=== PATIENT | female | born 1985 | race Hispanic/Latino ===

== ENCOUNTER 2017-08-13 22:40 | Emergency (ER) | payer MEDICAID ==
[2017-08-13 23:34] LABS: APPEARANCE,URINE Clear (CLEAR); BILIRUBIN,URINE Negative (NEGATIVE); COLOR,URINE Yellow (YELLOW); GLUCOSE, URINE (UA) Negative (NEGATIVE); KETONES,URINE Negative (NEGATIVE); LEUKOCYTE ESTERASE ,URINE Negative (NEGATIVE); NITRATE,URINE Negative (NEGATIVE); OCCULT BLOOD,URINE Negative (NEGATIVE); PROTEIN,URINE Negative (NEGATIVE); UROBILINOGEN,URINE 0.2 mg/dL (0.2-1.0)
[2017-08-13 23:35] LABS: HCG,QUAL RESULT NEGATIVE (NEGATIVE)
[2017-08-13 23:49] LABS: BASOPHILS % (AUTO) 0.7 % (0.0-5.0); EOSINOPHILS % (AUTO) 3.3 % (0.0-8.0); HEMATOCRIT 40.6 % (36-48); LYMPHOCYTES % (AUTO) 30.5 % (21.0-51.0); MEAN CORPUSCULAR HGB CONC 33.9 g/dL (32.0-36.0); MEAN CORPUSCULAR VOLUME 79.5 fL (79-99); MONOCYTES % (AUTO) 7.5 % (3.0-13.0); PLATELET COUNT (AUTO) 251 K/uL (130-400); RED BLOOD CELL COUNT(AUTO) 5.11 MIL/uL (4.00-5.50); RED CELL DISTRIBUTION WIDTH 13.8 % (11.0-15.5); WHITE BLOOD COUNT (AUTO) 11.5 K/uL (4.8-10.8)
[2017-08-13 23:56] LABS: CREATININE 0.7 mg/dL (0.5-1.5); POTASSIUM 3.6 mmol/L (3.5-5.1)
[2017-08-14 00:01] LABS: ALBUMIN 3.7 g/dL (3.5-5.0); BILIRUBIN,TOTAL 0.1 mg/dL (0.2-1.0); TOTAL PROTEIN, SERUM 7.9 g/dL (6.0-8.3)
[2017-08-14] MEDS ORDERED: KETOROLAC TROMETHAMINE 30MG/ML ONE (00:35)
== END 2017-08-14 01:48 | disposition home or self-care (01) ==
LOC: EDH 22:40
DX: R10.13 Epigastric pain (principal); R10.11 Right upper quadrant pain; R10.12 Left upper quadrant pain; Z88.0 Allergy status to penicillin; Z98.51 Tubal ligation status
CPT/HCPCS: 36415; 76705; 80053; 81003; 81025; 85025; 96374; 99285; J1885

== ENCOUNTER 2017-10-16 00:04 | Emergency (ER) | payer MEDICAID ==
[2017-10-16] MEDS ORDERED: DEXAMETHASONE SOD PHOSPHATE 10MG/ML 1ML VIAL ONE (00:42)
[2017-10-16] MEDS ORDERED: METHYLPREDNISOLONE SOD SUCC 125MG/2ML VIAL ONE (00:43)
[2017-10-16] MEDS ORDERED: ACETAMINOPHEN-CODEINE ELIXIR 5 ML UDCUP ONE (00:43)
[2017-10-16 01:43] LABS: APPEARANCE,URINE Cloudy (CLEAR); BILIRUBIN,URINE Small (NEGATIVE); COLOR,URINE Dark Yellow (YELLOW); GLUCOSE, URINE (UA) Negative (NEGATIVE); KETONES,URINE Trace mg/dL (NEGATIVE); LEUKOCYTE ESTERASE ,URINE Negative (NEGATIVE); NITRATE,URINE Negative (NEGATIVE); OCCULT BLOOD,URINE Negative (NEGATIVE); PROTEIN,URINE POS 1+ (NEGATIVE)
[2017-10-16 01:59] LABS: BACTERIA,URINE Few /HPF (None Seen); MUCUS,URINE Moderate LPF (None Seen); RBC,URINE 0-1 /HPF (0-1); SQUAMOUS EPITHELIAL CELL,UR Few /HPF (0-2)
== END 2017-10-16 01:46 | disposition home or self-care (01) ==
LOC: EDH 00:04
DX: M62.838 Other muscle spasm (principal); J30.9 Allergic rhinitis, unspecified; B34.9 Viral infection, unspecified; Z88.0 Allergy status to penicillin
CPT/HCPCS: 81001; 96372 ×2; 99284; J1100; J2930

== ENCOUNTER 2017-10-23 14:33 | Emergency (ER) | payer MEDICAID ==
[2017-10-23] MEDS ORDERED: ONDANSETRON ODT 4 MG TAB ONE (15:07)
[2017-10-23] MEDS ORDERED: MAG HYDROX/AL HYDROX/SIMETH ES 30 ML SUSP UDCUP ONE (15:07)
[2017-10-23 15:19] LABS: BASOPHILS % (AUTO) 0.7 % (0.0-5.0); EOSINOPHILS % (AUTO) 3.4 % (0.0-8.0); HEMATOCRIT 41.2 % (36-48); LYMPHOCYTES % (AUTO) 22.1 % (21.0-51.0); MEAN CORPUSCULAR HEMOGLOBIN 26.8 pg (27.0-33.0); MEAN CORPUSCULAR HGB CONC 33.2 g/dL (32.0-36.0); MEAN CORPUSCULAR VOLUME 80.6 fL (79-99); MONOCYTES % (AUTO) 10.1 % (3.0-13.0); NEUTROPHILS % (AUTO) 63.7 % (40.0-77.0); PLATELET COUNT (AUTO) 257 K/uL (130-400); RED BLOOD CELL COUNT(AUTO) 5.11 MIL/uL (4.00-5.50); RED CELL DISTRIBUTION WIDTH 14.6 % (11.0-15.5); WHITE BLOOD COUNT (AUTO) 11.2 K/uL (4.8-10.8)
[2017-10-23 15:27] LABS: CREATININE 0.7 mg/dL (0.5-1.5); POTASSIUM 4.1 mmol/L (3.5-5.1)
[2017-10-23 15:31] LABS: ALBUMIN 3.5 g/dL (3.5-5.0); BILIRUBIN,TOTAL 0.4 mg/dL (0.2-1.0); TOTAL PROTEIN, SERUM 7.4 g/dL (6.0-8.3)
[2017-10-23 15:36] LABS: APPEARANCE,URINE CLEAR (CLEAR); BILIRUBIN,URINE NEGATIVE (NEGATIVE); COLOR,URINE YELLOW (YELLOW); GLUCOSE, URINE (UA) NEGATIVE (NEGATIVE); KETONES,URINE NEGATIVE (NEGATIVE); LEUKOCYTE ESTERASE ,URINE NEGATIVE (NEGATIVE); NITRATE,URINE NEGATIVE (NEGATIVE); OCCULT BLOOD,URINE TRACE-INTACT (NEGATIVE); PH,URINE 5.5 (5.0-8.0); PROTEIN,URINE NEGATIVE (NEGATIVE); UROBILINOGEN,URINE 0.2 mg/dL (0.2-1.0)
[2017-10-23 15:41] LABS: HCG,QUAL RESULT NEGATIVE (NEGATIVE)
[2017-10-23 15:51] LABS: BACTERIA,URINE Few /HPF (None Seen); MUCUS,URINE Moderate LPF (None Seen); SQUAMOUS EPITHELIAL CELL,UR Rare /HPF (0-2); WBC,URINE 0-1 /HPF (0-1)
[2017-10-23 15:52] LABS: TRANSITIONAL EPI CELLS,URINE Rare /HPF (None Seen)
== END 2017-10-23 16:05 | disposition home or self-care (01) ==
LOC: EDH 14:33
DX: R10.9 Unspecified abdominal pain (principal); R11.10 Vomiting, unspecified; Z88.0 Allergy status to penicillin; Z79.899 Other long term (current) drug therapy; Z87.891 Personal history of nicotine dependence; Z87.442 Personal history of urinary calculi
CPT/HCPCS: 36415; 80053; 81001; 81025; 83690; 85025

== ENCOUNTER 2018-03-19 20:43 | Emergency (ER) | payer MEDICAID ==
[2018-03-19] MEDS ORDERED: ASPIRIN 325 MG TABLET ONE (21:16)
[2018-03-19 21:28] LABS: HCG,QUAL RESULT NEGATIVE (NEGATIVE)
[2018-03-19 21:31] LABS: BASOPHILS % (AUTO) 0.9 % (0.0-5.0); EOSINOPHILS % (AUTO) 4.1 % (0.0-8.0); LYMPHOCYTES % (AUTO) 35.7 % (21.0-51.0); MEAN CORPUSCULAR HEMOGLOBIN 26.5 pg (27.0-33.0); MEAN CORPUSCULAR HGB CONC 32.6 g/dL (32.0-36.0); MEAN CORPUSCULAR VOLUME 81.5 fL (79-99); MONOCYTES % (AUTO) 8.2 % (3.0-13.0); NEUTROPHILS % (AUTO) 51.1 % (40.0-77.0); NUCLEATED RED BLOOD CELLS 0.1 % (0.0-0.19); PLATELET COUNT (AUTO) 232 K/uL (130-400); RED BLOOD CELL COUNT(AUTO) 5.04 MIL/uL (4.00-5.50); RED CELL DISTRIBUTION WIDTH 13.4 % (11.0-15.5); WHITE BLOOD COUNT (AUTO) 10.4 K/uL (4.8-10.8)
[2018-03-19 21:32] LABS: AMPHET/METH SCREEN,URINE NEGATIVE (NEGATIVE); BARBITURATE SCREEN, URINE NEGATIVE (NEGATIVE); BENZODIAZEPINES SCREEN,URINE NEGATIVE (NEGATIVE); CANNABINOID SCREEN,URINE NEGATIVE (NEGATIVE); COCAINE SCREEN,URINE NEGATIVE (NEGATIVE); OPIATE SCREEN,URINE NEGATIVE (NEGATIVE); PHENCYCLIDINE SCREEN,URINE NEGATIVE (NEGATIVE)
[2018-03-19 21:43] LABS: CREATININE 0.9 mg/dL (0.5-1.5); POTASSIUM 3.9 mmol/L (3.5-5.1)
== END 2018-03-19 22:14 | disposition home or self-care (01) ==
LOC: EDH 20:43
DX: R07.89 Other chest pain (principal); Z88.0 Allergy status to penicillin; Z87.442 Personal history of urinary calculi
CPT/HCPCS: 36415; 71045; 80048; 80305; 81025; 84484; 85025; 93005

== ENCOUNTER 2018-07-06 23:42 | Emergency (ER) | payer MEDICAID ==
[2018-07-07 00:50] LABS: RAPID GROUP A STREP NEGATIVE (NEGATIVE)
[2018-07-07] MEDS ORDERED: ACETAMINOPHEN 325 MG TAB ONE (01:18)
== END 2018-07-07 01:23 | disposition home or self-care (01) ==
LOC: EDH 23:42
DX: J10.1 Influenza due to other identified influenza virus with other respiratory manifestations (principal); R50.81 Fever presenting with conditions classified elsewhere; Z88.0 Allergy status to penicillin; Z87.442 Personal history of urinary calculi; Z98.51 Tubal ligation status; Z87.891 Personal history of nicotine dependence
CPT/HCPCS: 87804; 87880

== ENCOUNTER 2019-03-10 10:44 | Emergency (ER) | payer MEDICAID, OTHER ==
[2019-03-10] MEDS ORDERED: KETOROLAC TROMETHAMINE 30MG/ML ONE (11:26)
[2019-03-10] MEDS ORDERED: ONDANSETRON HCL 4 MG/2 ML VIAL ONE (11:26)
[2019-03-10] MEDS ORDERED: SODIUM CHLORIDE 0.9% 1000ML 1,000 ML IV ONE (11:27)
[2019-03-10 11:30] LABS: BASOPHILS % (AUTO) 0.3 % (0.0-5.0); EOSINOPHILS % (AUTO) 0.2 % (0.0-8.0); HEMATOCRIT 41.3 % (36-48); LYMPHOCYTES % (AUTO) 13.8 % (21.0-51.0); MEAN CORPUSCULAR HEMOGLOBIN 27.2 pg (27.0-33.0); MEAN CORPUSCULAR HGB CONC 33.7 g/dL (32.0-36.0); MEAN CORPUSCULAR VOLUME 80.8 fL (79-99); MONOCYTES % (AUTO) 1.4 % (3.0-13.0); NEUTROPHILS % (AUTO) 84.3 % (40.0-77.0); PLATELET COUNT (AUTO) 251 K/uL (130-400); RED BLOOD CELL COUNT(AUTO) 5.12 MIL/uL (4.00-5.50); RED CELL DISTRIBUTION WIDTH 13.9 % (11.0-15.5); WHITE BLOOD COUNT (AUTO) 7.8 K/uL (4.8-10.8)
[2019-03-10 11:39] LABS: CREATININE 0.8 mg/dL (0.5-1.5)
[2019-03-10 11:44] LABS: ALBUMIN 3.9 g/dL (3.5-5.0); BILIRUBIN,TOTAL 0.3 mg/dL (0.2-1.0); TOTAL PROTEIN, SERUM 8.3 g/dL (6.0-8.3)
[2019-03-10 12:03] LABS: APPEARANCE,URINE Clear (CLEAR); BILIRUBIN,URINE Negative (NEGATIVE); COLOR,URINE Yellow (YELLOW); GLUCOSE, URINE (UA) Negative (NEGATIVE); KETONES,URINE Negative (NEGATIVE); LEUKOCYTE ESTERASE ,URINE Negative (NEGATIVE); NITRATE,URINE Negative (NEGATIVE); OCCULT BLOOD,URINE Negative (NEGATIVE); PROTEIN,URINE Negative (NEGATIVE); UROBILINOGEN,URINE 0.2 mg/dL (0.2-1.0)
[2019-03-10 12:07] LABS: HCG,QUAL RESULT NEGATIVE (NEGATIVE)
== END 2019-03-10 14:25 | disposition home or self-care (01) ==
LOC: EDH 10:44
DX: G50.1 Atypical facial pain (principal); R11.10 Vomiting, unspecified; R20.2 Paresthesia of skin; Z87.442 Personal history of urinary calculi; Z88.0 Allergy status to penicillin; Z98.51 Tubal ligation status
CPT/HCPCS: 36415; 70450; 80053; 81003; 81025; 85025; 96361; 96374; 96375; 99285; J1885; J2405; J7030

== ENCOUNTER 2019-04-23 08:43 | Observation (INO) | payer MEDICAID, OTHER ==
[~2019-04-23] VITALS: Ht 157.5 cm; Wt 55.2 kg
[2019-04-23] VITALS (25 sets, daily range): BP systolic 85–137; BP diastolic 56–86
[2019-04-23] MEDS ORDERED: KETOROLAC TROMETHAMINE 30MG/ML ONE ×2 (09:07→14:43)
[2019-04-23] MEDS ORDERED: ONDANSETRON HCL 4 MG/2 ML VIAL ONE ×2 (09:07→14:43)
[2019-04-23 09:17] LABS: BASOPHILS % (AUTO) 0.7 % (0.0-5.0); EOSINOPHILS % (AUTO) 2.8 % (0.0-8.0); HEMATOCRIT 39.4 % (36-48); LYMPHOCYTES % (AUTO) 25.6 % (21.0-51.0); MEAN CORPUSCULAR HEMOGLOBIN 27.3 pg (27.0-33.0); MEAN CORPUSCULAR HGB CONC 33.2 g/dL (32.0-36.0); MEAN CORPUSCULAR VOLUME 82.2 fL (79-99); MONOCYTES % (AUTO) 9.9 % (3.0-13.0); PLATELET COUNT (AUTO) 203 K/uL (130-400); RED BLOOD CELL COUNT(AUTO) 4.79 MIL/uL (4.00-5.50); WHITE BLOOD COUNT (AUTO) 8.1 K/uL (4.8-10.8)
[2019-04-23 09:25] LABS: CREATININE 0.6 mg/dL (0.5-1.5); POTASSIUM 4.5 mmol/L (3.5-5.1)
[2019-04-23 09:29] LABS: BILIRUBIN,DIRECT 0.1 mg/dL (0.0-0.3); BILIRUBIN,TOTAL 0.2 mg/dL (0.2-1.0); TOTAL PROTEIN, SERUM 6.7 g/dL (6.0-8.3)
[2019-04-23 10:56] LABS: APPEARANCE,URINE Cloudy (CLEAR); BILIRUBIN,URINE Negative (NEGATIVE); COLOR,URINE Yellow (YELLOW); GLUCOSE, URINE (UA) Negative (NEGATIVE); HCG,QUAL RESULT NEGATIVE (NEGATIVE); KETONES,URINE Negative (NEGATIVE); LEUKOCYTE ESTERASE ,URINE Negative (NEGATIVE); NITRATE,URINE Negative (NEGATIVE); OCCULT BLOOD,URINE Negative (NEGATIVE); PH,URINE 5.5 (5.0-8.0); PROTEIN,URINE Negative (NEGATIVE)
[2019-04-23 11:03] LABS: AMPHET/METH SCREEN,URINE NEGATIVE (NEGATIVE); BARBITURATE SCREEN, URINE NEGATIVE (NEGATIVE); BENZODIAZEPINES SCREEN,URINE NEGATIVE (NEGATIVE); CANNABINOID SCREEN,URINE NEGATIVE (NEGATIVE); COCAINE SCREEN,URINE NEGATIVE (NEGATIVE); OPIATE SCREEN,URINE NEGATIVE (NEGATIVE); PHENCYCLIDINE SCREEN,URINE NEGATIVE (NEGATIVE)
[2019-04-23 11:04] LABS: BACTERIA,URINE Rare /HPF (None Seen); MUCUS,URINE Rare LPF (None Seen); RBC,URINE 0-1 /HPF (0-1); SQUAMOUS EPITHELIAL CELL,UR Rare /HPF (0-2); WBC,URINE 0-1 /HPF (0-1)
[2019-04-23] MEDS ORDERED: CEFTRIAXONE SODIUM 1 GM ONE (12:07)
[2019-04-23] MEDS ORDERED: SODIUM CHLORIDE 0.9% 50 ML IV ONE (12:08)
[2019-04-23] MEDS ORDERED: LACTATED RINGERS 1000ML 1,000 ML IV ONE (14:10)
[2019-04-23] MEDS ORDERED: LIDOCAINE PF 2% 5ML ABBOJECT ONE (14:43)
[2019-04-23] MEDS ORDERED: GLYCOPYRROLATE 1 MG/5 ML SYRINGE ONE (14:43)
[2019-04-23] MEDS ORDERED: PROPOFOL 10 MG/ML 20ML VIAL IV ONE (14:43)
[2019-04-23] MEDS ORDERED: ROCURONIUM 10MG/1ML SYR 10 MG/ML ML ONE (14:43)
[2019-04-23] MEDS ORDERED: NEOSTIGMINE 5MG/5ML SYR IV ONE (14:43)
[2019-04-23] MEDS ORDERED: FENTANYL CITRATE PF 50 MCG/1 ML 2ML VIAL ONE (14:44)
[2019-04-23] MEDS ORDERED: BUPIVACAINE/PF 0.5% 30ML VIAL ONE (15:11)
[2019-04-23] MEDS ORDERED: MEPERIDINE-PF 25 MG/ML SYG ONE ×2 (15:53→16:29)
[2019-04-23] MEDS ORDERED: MORPHINE SULFATE 4 MG/1ML SYG IV PRN (16:00)
[2019-04-23] MEDS ORDERED: ONDANSETRON HCL 4 MG/2 ML VIAL IVP PRN (16:00)
--- NOTE | 2019-04-23 17:20 | NUR ---
S/P LAP DERREK AAOX3, X3 INCISION INTACT, NONE BLEEDING WELL APPROXIMATED.
--- NOTE | 2019-04-23 17:30 | NUR ---
INITIAL MET W PATIENT, POST OP, BF AT BEDSIDE, AAOX3, INDP, NO DME/HH/PRO; LIVES W MOM AND HER TWO DAUGHTERS- ONE CHILD HAS EPILESPY; THE OTHER IS DISABLED AND STILL REQUIRES CARE TO BAHTE, DRESS, HOLD WHILE WALKING,ETC DISCUSSED STRATEGIES TO HELP DURING RECOVERY. CURRENTLY MOM LOOKING AFTER CHILDREN. PMD MEME, LOST HER MEDIAIC, IS BEING RE INSTATED. DCP IS HOME, NO DC NEEDS ANTICIPATED. Addendum: 04/25/19 at 1830 by ANGELICA RICHMOND RN CM Amended: Links added.
[2019-04-23] MEDS: SODIUM CHLORIDE 0.9% 1000ML 1,000 ML IV SCH (20:52)
[2019-04-23] MEDS: ACETAMINOPHEN-CODEINE 300/30MG TAB PO PRN (20:52)
[2019-04-23] MEDS: ZOSYN 3.375GM+NS 50ML 50 ML IV SCH (20:52)
--- NOTE | 2019-04-24 | NUR ---
TRANSFER OF CARE Report received from Tj Norman RN to assume care of pt. Pt asleep on rounds with ongoing ivf of NS at 75 cc/hr, with Zosyn for iv antibiotic regimen. Head of the bed up, respiration non labored, no signs of discomfort, was just medicated for pain with tylenol #3 at 2051. Blood pressure noted down to 99/56 mmhg from 116/61 mmhg at mn and heart rate down to 56 from 66 at mn, will continue to monitor closely.
[2019-04-24 04:00] VITALS: BP 104/62
[2019-04-24 04:24] LABS: BASOPHILS % (AUTO) 0.5 % (0.0-5.0); EOSINOPHILS % (AUTO) 2.6 % (0.0-8.0); HEMATOCRIT 34.2 % (36-48); LYMPHOCYTES % (AUTO) 28.1 % (21.0-51.0); MEAN CORPUSCULAR HEMOGLOBIN 27.3 pg (27.0-33.0); MEAN CORPUSCULAR HGB CONC 33.2 g/dL (32.0-36.0); MEAN CORPUSCULAR VOLUME 82.1 fL (79-99); MONOCYTES % (AUTO) 8.3 % (3.0-13.0); NEUTROPHILS % (AUTO) 60.5 % (40.0-77.0); PLATELET COUNT (AUTO) 204 K/uL (130-400); RED BLOOD CELL COUNT(AUTO) 4.17 MIL/uL (4.00-5.50); RED CELL DISTRIBUTION WIDTH 14.2 % (11.0-15.5); WHITE BLOOD COUNT (AUTO) 7.9 K/uL (4.8-10.8)
[2019-04-24 04:41] LABS: CREATININE 0.6 mg/dL (0.5-1.5); POTASSIUM 3.5 mmol/L (3.5-5.1)
[2019-04-24] MEDS: ZOSYN 3.375GM+NS 50ML 50 ML IV SCH ×2 (05:05→13:00)
[2019-04-24] MEDS: SODIUM CHLORIDE 0.9% 1000ML 1,000 ML IV SCH (05:06)
--- NOTE | 2019-04-24 07:30 | NUR ---
NOTE AAOX3. C/O ABDOMINAL PAIN AND DISCOMFORT AT THIS TIME. SHE IS S/P LAPAROSCOPIC APPENDECTOMY YESTERDAY. 3 JAKE BANDAIDS PRESENT. ALL D/I. BOWEL SOUNDS PRESENT. SHE HAS NOT BEEN GETTING OUT OF BED OFTEN. ENCOURAGED HER TO AMBULATE. SHE CAN POSSIBLY GO HOME TODAY.
--- NOTE | 2019-04-24 07:41 | NUR ---
PATIENT UPDATE SLEPT FAIRLY OVERNIGHT, LAPAROSCOPIC PUNCTURE SITES X 3 WITH DRESSING DRY AND INTACT. MEDICATED ONCE WITH MORPHINE 4 MG SLOW IV PUSH FOR A PAIN SCORE OF 10 AT 0308 WHICH AFFORDED RELIEF. PT ENCOURAGED TO AMBULATE THIS AM SOON SHE WOKE UP. STATED THAT SHE'S BEEN GOING UP TO THE RESTROOM ANYWAY. EXPLAINED THE NEED FOR HER TO WALK MORE FOR HER TO BE RELIEVED FROM THE GAS PAINS, WILL TRY TO WALK AFTER SHE EATS HER FULL LIQUID BREAKFAST.
[2019-04-24 07:58] VITALS: BP 108/68
[2019-04-24] MEDS: ACETAMINOPHEN-CODEINE 300/30MG TAB PO PRN ×2 (09:21→15:35)
--- NOTE | 2019-04-24 10:30 | NUR ---
NOTE SPOKE TO HER REGARDING HER WALKING. SHE WENT TO [facility] FOR A WALK AND WAS USING WALKER. SHE DID NOT USE WALKER BEFORE AND SHE WANTED ONE BECAUSE SHE WAS VERY WEAK. I ENCOURAGED HER NOT TO HANDICAP HERSELF AND DO SHE USED TO BEFORE SURGERY ONLY BEING CAREFUL NOT TO LIFT ANYTHING HEAVY OR STRAIN HER ABDOMEN.
[2019-04-24 11:28] VITALS: BP 115/65
--- NOTE | 2019-04-24 15:00 | NUR ---
NOTE SHE HAS BEEN WALKING. WAS MEDICATED EARLIER WITH TYLENOL 3. LUISA TERRY ROUNDED AND SHE WILL GO HOME TODAY AFTER DINNER ORDERED PER HIM. DIET HAS BEEN ADVANCED AND SHE TOLERATED REGULAR LUNCH.
[2019-04-24 16:07] VITALS: BP 126/74
--- NOTE | 2019-04-24 18:15 | NUR ---
NOTE DISCHARGE INSTRUCTIONS GIVEN AT THIS TIME. VERBALIZED UNDERSTANDING. REFER TO DC SUMMARY FOR DETAILS. STABLE UPON LEAVING. HAD TOLERATED THE DIET WELL WITH SOME ABDOMINAL DISCOMFORT BUT HAD INCREASED HER ACTIVITY LEVEL.
== END 2019-04-24 18:30 | disposition home or self-care (01) ==
LOC: EDH 08:43 → EDHIP 08:44 → 4BH 16:59
PROVIDERS: ADMIT Student in an Organized Health Care Education/Training Program; ATTEND Student in an Organized Health Care Education/Training Program
DX: K35.80 Unspecified acute appendicitis (principal); R11.2 Nausea with vomiting, unspecified; I10 Essential (primary) hypertension; E78.5 Hyperlipidemia, unspecified; E66.9 Obesity, unspecified; Z87.891 Personal history of nicotine dependence; Z98.51 Tubal ligation status; Z79.899 Other long term (current) drug therapy; Z88.0 Allergy status to penicillin; Z68.22 Body mass index [BMI] 22.0-22.9, adult
CPT/HCPCS: 36415; 74176; 80048; 80076; 80305; 81001; 81025; 83690; 85025; 88304; 96361; 96365; 96366; 96375; G0378; J0696; J1885; J2001; J2175; J2270; J2405; J2543; J2704; J2710; J3010; J3490; J7030; J7120

== ENCOUNTER 2019-04-29 09:41 | Emergency (ER) | payer MEDICAID, OTHER ==
[2019-04-29] MEDS ORDERED: MORPHINE SULFATE 2 MG/ML 1ML SYG ONE (10:14)
[2019-04-29] MEDS ORDERED: ONDANSETRON HCL 4 MG/2 ML VIAL ONE (10:14)
[2019-04-29] MEDS ORDERED: SODIUM CHLORIDE 0.9% 1000ML 1,000 ML IV ONE (10:15)
[2019-04-29 10:34] LABS: BASOPHILS % (AUTO) 0.5 % (0.0-5.0); EOSINOPHILS % (AUTO) 3.8 % (0.0-8.0); HEMATOCRIT 42.5 % (36-48); LYMPHOCYTES % (AUTO) 27.2 % (21.0-51.0); MEAN CORPUSCULAR HEMOGLOBIN 25.9 pg (27.0-33.0); MEAN CORPUSCULAR HGB CONC 31.5 g/dL (32.0-36.0); MEAN CORPUSCULAR VOLUME 82.2 fL (79-99); MONOCYTES % (AUTO) 8.2 % (3.0-13.0); NEUTROPHILS % (AUTO) 59.6 % (40.0-77.0); PLATELET COUNT (AUTO) 249 K/uL (130-400); RED BLOOD CELL COUNT(AUTO) 5.17 MIL/uL (4.00-5.50); RED CELL DISTRIBUTION WIDTH 13.9 % (11.0-15.5); WHITE BLOOD COUNT (AUTO) 8.4 K/uL (4.8-10.8)
[2019-04-29 10:36] LABS: CREATININE 0.7 mg/dL (0.5-1.5); POTASSIUM 4.3 mmol/L (3.5-5.1)
[2019-04-29 11:03] LABS: APPEARANCE,URINE Clear (CLEAR); BILIRUBIN,URINE Negative (NEGATIVE); COLOR,URINE Yellow (YELLOW); GLUCOSE, URINE (UA) Negative (NEGATIVE); KETONES,URINE Negative (NEGATIVE); LEUKOCYTE ESTERASE ,URINE Small (NEGATIVE); NITRATE,URINE Negative (NEGATIVE); OCCULT BLOOD,URINE Negative (NEGATIVE); PH,URINE 5.5 (5.0-8.0); PROTEIN,URINE Negative (NEGATIVE); UROBILINOGEN,URINE 0.2 mg/dL (0.2-1.0)
[2019-04-29 11:05] LABS: HCG,QUAL RESULT NEGATIVE (NEGATIVE)
[2019-04-29 11:39] LABS: BACTERIA,URINE Few /HPF (None Seen); RBC,URINE None Seen /HPF (0-1)
== END 2019-04-29 12:49 | disposition home or self-care (01) ==
LOC: EDH 09:41
DX: K59.00 Constipation, unspecified (principal); M79.604 Pain in right leg; Z88.0 Allergy status to penicillin; Z87.891 Personal history of nicotine dependence; Z90.49 Acquired absence of other specified parts of digestive tract; Z98.890 Other specified postprocedural states
CPT/HCPCS: 36415; 74176; 80048; 81001; 81025; 85025; 93971; 96374; 96375; 99285; J2405; J7030

== ENCOUNTER 2019-05-30 01:44 | Emergency (ER) | payer MEDICAID ==
[2019-05-30 02:13] LABS: BASOPHILS % (AUTO) 0.4 % (0.0-5.0); EOSINOPHILS % (AUTO) 2.8 % (0.0-8.0); HEMATOCRIT 39.6 % (36-48); LYMPHOCYTES % (AUTO) 30.7 % (21.0-51.0); MEAN CORPUSCULAR HEMOGLOBIN 26.2 pg (27.0-33.0); MEAN CORPUSCULAR HGB CONC 32.1 g/dL (32.0-36.0); MEAN CORPUSCULAR VOLUME 81.8 fL (79-99); MONOCYTES % (AUTO) 9.6 % (3.0-13.0); NEUTROPHILS % (AUTO) 55.7 % (40.0-77.0); PLATELET COUNT (AUTO) 236 K/uL (130-400); RED BLOOD CELL COUNT(AUTO) 4.84 MIL/uL (4.00-5.50); RED CELL DISTRIBUTION WIDTH 13.7 % (11.0-15.5); WHITE BLOOD COUNT (AUTO) 10.9 K/uL (4.8-10.8)
[2019-05-30 02:17] LABS: CREATININE 0.6 mg/dL (0.5-1.5)
[2019-05-30 02:38] LABS: B-TYPE NATRIURETIC PEPTIDE < 5 pg/mL (0-100)
[2019-05-30] MEDS ORDERED: ORPHENADRINE CITRATE 30 MG/ML ML ONE (02:57)
[2019-05-30] MEDS ORDERED: LIDOCAINE 5% TOPICAL PATCH TP ONE (02:57)
[2019-05-30] MEDS ORDERED: KETOROLAC TROMETHAMINE 30MG/ML ONE (02:58)
== END 2019-05-30 05:22 | disposition home or self-care (01) ==
LOC: EDH 01:44
DX: R07.89 Other chest pain (principal); M54.89 Other dorsalgia; M62.838 Other muscle spasm; Z88.0 Allergy status to penicillin; Z90.49 Acquired absence of other specified parts of digestive tract; Z98.890 Other specified postprocedural states
CPT/HCPCS: 36415; 71045; 80048; 82550; 83880; 84484; 85025; 93005; 96374; 96375; 99285; J1885; J2360

== ENCOUNTER → 2021-08-01 | Outpatient (CLI) | payer MEDICAID | END | disposition home or self-care (01) | LOC: RAH 13:15 | PROVIDERS: ATTEND Family Medicine | DX: N64.4 Mastodynia (principal) | CPT/HCPCS: 77066 ==

== ENCOUNTER → 2022-08-04 | Outpatient (CLI) | payer MEDICAID | END | disposition home or self-care (01) | LOC: RAH 11:05 | PROVIDERS: ATTEND Psychiatry & Neurology Psychiatry | DX: Z12.31 Encounter for screening mammogram for malignant neoplasm of breast (principal) | CPT/HCPCS: 77067 ==

== ENCOUNTER 2023-07-23 20:34 | Emergency (ER) | payer MEDICAID ==
[~2023-07-23] VITALS: Ht 157.5 cm; Wt 135.2 kg
[2023-07-23] MEDS ORDERED: DIPH50 PO (21:05)
[2023-07-23] MEDS ORDERED: METH4TAB3 PO (21:05)
[2023-07-23 23:08] VITALS: BP 121/64; PULSE 68; RESP 20; O2SAT 98
[2023-07-23] MEDS: FAMOTIDINE 20MG TAB PO ONE (23:46)
[2023-07-23] MEDS: DEXAMETHASONE SOD PHOSPHATE 4 MG/ML 1ML VIAL IM ONE (23:46)
[2023-07-23] MEDS: DiphenhydrAMINE HCL 50 MG/ML VIAL IM ONE (23:46)
== END 2023-07-23 23:53 | disposition home or self-care (01) ==
LOC: EDH 20:34
DX: T78.40XA Allergy, unspecified, initial encounter (principal); L30.9 Dermatitis, unspecified; Z90.49 Acquired absence of other specified parts of digestive tract; Z88.0 Allergy status to penicillin
CPT/HCPCS: 99284; 96372 ×2; J1100; J1200

== ENCOUNTER 2023-10-22 12:24 | Emergency (ER) | payer MEDICAID ==
[~2023-10-22] VITALS: Ht 157.5 cm; Wt 124.5 kg
[~2023-10-22 12:24] MED LIST: DIPH50 PO; METH4TAB3 PO
[2023-10-22 13:42] LABS: BASOPHILS # (AUTO) 0.05 K/uL (0.00-0.20); BASOPHILS % (AUTO) 0.5 % (0.0-5.0); EOSINOPHILS # (AUTO) 0.33 K/uL (0.00-0.70); EOSINOPHILS % (AUTO) 3.5 % (0.0-8.0); HEMATOCRIT 39.5 % (36-48); IMMATURE GRANULOCYTE ABSOLUTE 0.02 K/uL (0-1); LYMPHOCYTES # (AUTO) 2.7 K/uL (1.0-4.8); LYMPHOCYTES % (AUTO) 28.5 % (21.0-51.0); MEAN CORPUSCULAR HGB CONC 32.2 g/dL (32.0-36.0); MEAN CORPUSCULAR VOLUME 77.6 fL (79-99); MONOCYTES # (AUTO) 0.6 K/uL (0.1-1.0); MONOCYTES % (AUTO) 6.3 % (3.0-13.0); NEUTROPHILS # (AUTO) 5.8 K/uL (1.8-7.7); PLATELET COUNT (AUTO) 258 K/uL (130-400); RED BLOOD CELL COUNT(AUTO) 5.09 MIL/uL (4.00-5.50); RED CELL DISTRIBUTION WIDTH 15.5 % (11.0-15.5); WHITE BLOOD COUNT (AUTO) 9.5 K/uL (4.8-10.8)
[2023-10-22 13:47] LABS: CREATININE 0.9 mg/dL (0.5-1.0); POTASSIUM 3.8 mmol/L (3.5-5.1)
[2023-10-22 13:53] LABS: ALBUMIN 3.5 g/dL (3.5-5.0); BILIRUBIN,TOTAL 0.3 mg/dL (0.2-1.0); TOTAL PROTEIN, SERUM 7.4 g/dL (6.0-8.3)
[2023-10-22 18:35] VITALS: BP 141/88; PULSE 82; RESP 16; O2SAT 98
[2023-10-22] MEDS: MORPHINE 4 MG SYG IM ONE (18:35)
== END 2023-10-22 19:14 | disposition home or self-care (01) ==
LOC: EDH 12:24
DX: R07.89 Other chest pain (principal); I10 Essential (primary) hypertension
CPT/HCPCS: 99285; 71045; 84484 ×2; 80053; 85025; 36415; 96372; 93005; J2270

== ENCOUNTER → 2024-03-05 | Outpatient (CLI) | payer MEDICAID | END | disposition home or self-care (01) | LOC: RAH 07:57 | PROVIDERS: ATTEND Dermatology | DX: R22.32 Localized swelling, mass and lump, left upper limb (principal) | CPT/HCPCS: 73221 ==

== ENCOUNTER 2025-01-08 17:21 | Emergency (ER) | payer MEDICAID ==
[~2025-01-08] VITALS: Ht 157.5 cm; Wt 118.4 kg
--- NOTE | 2025-01-08 17:43 | ERN ---
ED Note History of Present Illness Stated Complaint: ABDOMINAL PAIN Chief Complaint: Abdominal Pain Time Seen by MD: 17:25 Time Seen by Midlevel: 17:25 Dictation: The patient is a 39-year-old female with a history of sleep apnea, diabetes, appendectomy who presents to the emergency department with complaints of epigastric, right upper abdominal pain, nonbloody diarrhea, chills, burning urination for the last four days. Patient denies any nausea or vomiting, denies fevers, denies hematuria. Allergies: Coded Allergies: Penicillins (Unverified Allergy, Unknown, 03/10/19) Home Meds Active Scripts Diphenhydramine HCl (Benadryl) 50 Mg Cap, 50 MG PO Q6HPRN for ALLERGiES, #60 CAP Prov:MEENA BAUMANN FIGHT MANAGER 07/23/23 Methylprednisolone (Medrol) 4 Mg Tab.ds.pk, 4 MG PO ACLUNCH, #1 UNIT Prov:MEENA BAUMANN FIGHT MANAGER 07/23/23 Past Medical History Past Medical History: Arthritis, Hypertension Additional Past Medical Hx: SLEEP APNEA Surgical History: None History: Not Applicable LMP: Dec 12, 2024 RN Note Reviewed/Agreed w/PFSH: Yes Review of System Dictation Constitutional: Negative for fever,chills, and weight loss Eyes: Negative for injury, pain,redness, and discharge ENT: Negative for injury,pain or swelling Cardiovascular: Negative for chest pain, palpitations, and edema Respiratory: Negative for shortness of breath, cough, and wheezing, Abdomen/GI: Negative for vomiting, and constipation positive for abdominal pain, nausea, diarrhea Back: Negative for injury and pain : Negative for injury, bleeding and discharge MS/Extremity: Negative for injury and deformity Skin: Negative for rash, and discoloration Neuro: Negative for headache, weakness, numbness, tingling, and seizure Psych: Negative for suicide ideation, homicidal ideation, and hallucinations Initial Vital Sign VS Vital Signs Date Time Temp Pulse Resp B/P (MAP) Pulse Ox O2 Delivery O2 Flow Rate FiO2 01/08/25 17:24 98.8 99 20 165/92 99 Room Air 01/08/25 19:29 0 21 Physical Exam Dictation Vital Signs reviewed General Appearance: Alert, oriented x 3, no acute distress, well developed, nourished. Head and Face: non-traumatic. Eyes: PERRL, pink conjunctivas, eyelid no trauma, anterior chamber with arcus senilis. Ears: Pinnas intact and no signs of trauma or erythema ear canals clear and no discharge TM no erythema Nose: No discharge, no bleeding. Oropharynx: Mouth normal, tongue pink. pharynx clear,no erythema, tonsils no exudates, no abscesses noted, mucous membrane moist Neck: Supple, non-tender, no thyromegaly, no masses, no JVD, no bruits Breast:Deferred Chest:No tenderness, no crepitus, no paradoxical movement, no retractions Lungs:Clear, well-ventilated, symmetric, no rales, no wheezing, no rhonchi, no stridor, good breath sounds bilaterally Heart: Regular rate, regular rhythm, no murmur, no gallops Vascular: no peripheral edema, Abdomen: Soft, positive bowel sounds, nondistended, no guarding, Epigastric, right upper quadrant tenderness, no rebound, no masses no hepat omegaly, no splenomegaly, no Atkinson's sign, no hernias. Rectal: Deferred Genital: Deferred Neurological: Normal speech, motor function intact, sensory function intact Musculoskeletal: Neck nontender, full range of motion, back nontender, full range of motion, Extremities: nontender, full range of motion Skin: Color pink, dry, no turgor, no rash, no lacerations, no abrasions, no contusions. Lymphatic: Deferred Results (Laboratory/Radiology) Laboratory/Radiology Laboratory Tests Test 01/08/25 17:37 01/08/25 18:30 Urine Color YELLOW (YELLOW) Urine Appearance CLOUDY (CLEAR) H Urine pH 5.5 (5.0-8.0) Urine Specific [place] 1.016 (1.001-1.031) Urine Protein 70 mg/dL (NEGATIVE) H Urine Glucose (UA) NEGATIVE mg/dL (NEGATIVE) Urine Ketones NEGATIVE mg/dL (NEGATIVE) Urine Occult Blood LARGE (NEGATIVE) H Urine Nitrate 2+ (NEGATIVE) H Urine Bilirubin NEGATIVE mg/dL (NEGATIVE) Urine Urobilinogen 0.2 mg/dL (0.2-1.0) Urine Leukocyte Esterase 500 Castro/uL (NEGATIVE) H Urine RBC 26-50 /HPF (0-1) H Urine WBC 26-50 /HPF (0-1) H Urine WBC Clumps (Auto) RARE /HPF (0-1) Urine Squamous Epithelial Cells RARE /HPF (0-2) Urine Other Crystals (Auto) 1 /HPF (None Seen) Urine Bacteria FEW /HPF (None Seen) Urine HCG, Qualitative NEGATIVE (NEGATIVE) White Blood Count 13.5 K/uL (4.8-10.8) H Red Blood Count 4.87 MIL/uL (4.00-5.50) Hemoglobin 12.6 g/dL (12.0-16.0) Hematocrit 38.7 % (36-48) Mean Corpuscular Volume 79.5 fL (79-99) Mean Corpuscular Hemoglobin 25.9 pg (27.0-33.0) L Mean Corpuscular Hemoglobin Concent 32.6 g/dL (32.0-36.0) Red Cell Distribution Width 14.5 % (11.0-15.5) Platelet Count 264 K/uL (130-400) Mean Platelet Volume 11.7 fL (7.5-10.5) H Immature Granulocyte % (Auto) 0.4 % (0-1) Neutrophils (%) (Auto) 70.5 % (40.0-77.0) Lymphocytes (%) (Auto) 17.4 % (21.0-51.0) L Monocytes (%) (Auto) 7.4 % (3.0-13.0) Eosinophils (%) (Auto) 3.6 % (0.0-8.0) Basophils (%) (Auto) 0.7 % (0.0-5.0) Neutrophils # (Auto) 9.5 K/uL (1.8-7.7) H Lymphocytes # (Auto) 2.3 K/uL (1.0-4.8) Monocytes # (Auto) 1.0 K/uL (0.1-1.0) Eosinophils # (Auto) 0.48 K/uL (0.00-0.70) Basophils # (Auto) 0.09 K/uL (0.00-0.20) Absolute Immature Granulocyte (auto 0.05 K/uL (0-1) Nucleated Red Blood Cells 0.0 % (0.0-0.19) Sodium Level 135 mmol/L (136-145) L Potassium Level 3.7 mmol/L (3.5-5.1) Chloride Level 103 mmol/L (101-111) Carbon Dioxide Level 28 mmol/L (21-32) Blood Urea Nitrogen 10 mg/dL (7-18) Creatinine 0.8 mg/dL (0.5-1.0) Glomerular Filtration Rate Calc 95 mL/min (>90) Random Glucose 99 mg/dL (70-105) Total Calcium 8.5 mg/dL (8.5-10.1) Total Bilirubin 0.2 mg/dL (0.2-1.0) Direct Bilirubin 0.1 mg/dL (0.0-0.3) Aspartate Amino Transf (AST/SGOT) 16 U/L (10-37) Alanine Aminotransferase (ALT/SGPT) 27 U/L (12-78) Alkaline Phosphatase 63 U/L (50-136) Total Creatine Kinase 81 U/L (21-232) Troponin I High Sensitivity < 4 ng/L (4-50) L Total Protein 7.1 g/dL (6.0-8.3) Albumin 3.2 g/dL (3.5-5.0) L Lipase 49 U/L (16-77) REASON: Adominal Pain ORDERING PHYSICIAN: DESIRAE LLANOS PROCEDURE: [id number] - US ABDOMINAL RUQ\LTD EXAMINATION:US Abdomen, Right Upper Quadrant CLINICAL HISTORY: Patient presents with abdominal pain. COMPARISON:U ltrasound right upper quadrant dated August 14, 2017, and CT abdomen dated April 29, 2019. TECHNIQUE: Right upper quadrant sonography performed with image documentation. FINDINGS: LIVER: Hepatic steatosis. The liver measures 16.4 cm in craniocaudal length. No discrete mass. GALLBLADDER: The gallbladder is contracted. No gallstones or wall thickening identified. COMMON BILE DUCT: Measures 5 mm, within normal limits. PANCREAS: The pancreas is obscured by bowel gas. RIGHT KIDNEY: The right kidney measures 9.7 x 4.6 x 4.5 cm. Normal renal contours. No renal mass, calculus, or hydronephrosis. IMPRESSION: No acute cholecystitis /[place] Labs Reviewed?: Yes EKG: (+) rhythm (Sinus rhythm) EKG Comment: Date:01/08/2025 Time:1743 Ventricular rate:86 FL interval:130 QRS duration:88 QT/QTc:346/415 EKG interpretation: Sinus rhythm Reviewed by ED Attending no STEMI ED Course ED Course Orders Procedure Category Date Status Time Cbc With Differential LAB 01/08/25 Complete 17:32 Troponin I High LAB 01/08/25 Complete Sensitivity 17:32 ,Urine Test LAB 01/08/25 Complete 17:32 Urinalysis Profile LAB 01/08/25 Complete 17:32 Us Abdominal Ruq\Ltd US 01/08/25 Resulted 17:32 Morphine 4mg Syg PHA 01/08/25 In Process (Morphine 4mg Syg) 18:00 Ondansetron 4mg Inj PHA 01/08/25 In Process (Zofran 4mg Inj) 18:00 Pantoprazole 40mg Inj PHA 01/08/25 In Process (Protonix 40mg Inj 18:00 Creatine Kinase, Total LAB 01/08/25 Complete 17:32 Lipase LAB 01/08/25 Complete 17:32 Basic Metabolic Panel LAB 01/08/25 Complete 17:32 Hepatic Function Panel LAB 01/08/25 Complete 17:32 12 Lead Ekg Tracing- EKG 01/08/25 Logged Technical 17:32 Culture Urine FABIAN 01/08/25 In Process 17:48 Nitrofurantoin PHA 01/08/25 In Process Monohyd/M-Cryst 19:30 Current Medications Medications (Trade) Dose Ordered Sig/Emmett Route PRN Reason Start Time Stop Time Status Last Admin Dose Admin Morphine Sulfate (morPHINE 4MG SYG) 4 mg ONCE IVP 01/08/25 18:00 01/08/25 22:00 Nitrofurantoin Macrocrystals (Macrobid) 100 mg ONCE PO 01/08/25 19:30 01/08/25 23:30 Ondansetron HCl (zoFRAN 4MG INJ) 4 mg ONCE IVP 01/08/25 18:00 01/08/25 22:00 Pantoprazole Sodium (PROTonix 40MG INJ) 40 mg ONCE IVP 01/08/25 18:00 01/08/25 22:00 Vital Signs Date Time Temp Pulse Resp B/P (MAP) Pulse Ox O2 Delivery O2 Flow Rate FiO2 01/08/25 19:29 99.0 100 19 119/61 98 Room Air* 0 21 01/08/25 17:24 98.8 99 20 165/92 99 Room Air Medical Decision Making MDM The patient is a 39-year-old female with a history of sleep apnea, diabetes, appendectomy who presents to the emergency department with complaints of epigastric, right upper abdominal pain, nonbloody diarrhea, chills, burning urination for the last four days. Patient denies any nausea or vomiting, denies fevers, denies hematuria. CBC showed mild leukocytosis, no anemia, chemistry showed mild hyponatremia, negative lipase, negative troponin, negative liver enzymes, normal renal function. Right upper quadrant ultrasound showed no acute cholecystitis. Urinalysis consistent with urinary tract infection. Patient will be started on antibiotics. On physical exam patient is in no acute distress, nontoxic appearance. We will discharge patient with the antibiotics and instructed to follow up with PCP. Differential diagnosis: Cholelithiasis, cholecystitis, gastritis, UTI, gastroenteritis Need for hospitalization: Patient does not meet criteria for hospitalization. There are no social concerns with this patient. DX & DISP Disposition: Discharge Departure Impression: Primary Impression: UTI (urinary tract infection) Additional Impression: Gastritis Condition: Stable Scripts Famotidine (Pepcid) 20 Mg Tablet 1 TAB PO BID for 30 Days, #60 TAB 0 Refills Prov: DESIRAE LLANOS LEAVE COORDINATOR 01/08/25 Nitrofurantoin Monohyd/M-Cryst (Macrobid 100 mg Capsule) 100 Mg Capsule 1 CAP PO BID for 5 Days, #10 CAP 0 Refills Prov: DESIRAE LLANOS LEAVE COORDINATOR 01/08/25 Additional Instructions: Your labs are consistent with a urinary tract infection. Please take your antibiotics as prescribed. Avoid foods that exacerbate your symptoms. Please follow up with the primary doctor in 1-2 days. If anything worsens please return to ER. FOLLOW-UP WITH PRIMARY CARE PROVIDER IN 1 TO 2 DAYS. TAKE MEDICATIONS DIRECTED HERE IN THE EMERGENCY ROOM. OKAY TO CONTINUE HOME MEDICATIONS UNLESS OTHERWISE DISCUSSED DURING YOUR VISIT IN THE EMERGENCY ROOM TODAY. RETURN TO YOUR NEAREST EMERGENCY ROOM IF SYMPTOMS WORSEN OR IF THERE IS NO IMPROVEMENT. CALL 911 IF YOU NEED IMMEDIATE ASSISTANCE. TAKE TYLENOL [id number] NEEDED AND IF NO CONTRAINDICATIONS ARE PRESENT. INCREASE ORAL HYDRATION. A WOUND CULTURE OR URINE CULTURE WAS ORDERED HERE IN THE EMERGENCY ROOM DEPARTMENT PLEASE FOLLOW-UP WITH PRIMARY CARE PROVIDER AND ADVISE THEM TO GET REPEAT PORTS FROM OUR FACILITY. IF YOU HAD ANY ELVIRA WRAP/SPLINTS THAT WERE APPLIED HERE, PLEASE DO NOT REMOVE THEM UNTIL YOU SEE YOUR PRIMARY CARE OR SPECIALTY. Referrals: ERIK SEGURA MD (PCP) Time of Disposition: 19:34 I have reviewed the case, and I agree with, Diagnosis and Plan DESIRAE LLANOS LEAVE COORDINATOR Jan 08, 2025 17:43
[2025-01-08 17:46] LABS: APPEARANCE,URINE CLOUDY (CLEAR); GLUCOSE, URINE (UA) NEGATIVE (NEGATIVE); LEUKOCYTE ESTERASE ,URINE 500 Leu/uL (NEGATIVE); NITRATE,URINE 2+ (NEGATIVE); OCCULT BLOOD,URINE LARGE (NEGATIVE)
[2025-01-08 17:47] LABS: ADD UA MICROSCOPIC YES
[2025-01-08 17:49] LABS: HCG,QUALITATIVE URINE NEGATIVE (NEGATIVE)
[2025-01-08 18:09] LABS: SQUAMOUS EPITHELIAL CELL,UR RARE /HPF (0-2); UNCLASSIFIED CRYSTAL 1 /HPF (None Seen); WBC CLUMP RARE /HPF (0-1)
[2025-01-08 18:39] LABS: IMMATURE GRANULOCYTE ABSOLUTE 0.05 K/uL (0-1); NUCLEATED RED BLOOD CELLS 0.0 % (0.0-0.19); PLATELET COUNT (AUTO) 264 K/uL (130-400); RED BLOOD CELL COUNT(AUTO) 4.87 MIL/uL (4.00-5.50); RED CELL DISTRIBUTION WIDTH 14.5 % (11.0-15.5); WHITE BLOOD COUNT (AUTO) 13.5 K/uL (4.8-10.8)
[2025-01-08 18:59] LABS: CREATININE 0.8 mg/dL (0.5-1.0); GLOMERULAR FILTR. RATE CALC 95.0 mL/min (>90); GLUCOSE,RANDOM 99.0 mg/dL (70-105); SODIUM SERUM 135.0 mmol/L (136-145); UREA NITROGEN, BLOOD 10.0 mg/dL (7-18)
--- NOTE | 2025-01-08 19:08 | HMCIMG ---
EXAMINATION:US Abdomen, Right Upper Quadrant CLINICAL HISTORY: Patient presents with abdominal pain. COMPARISON:U ltrasound right upper quadrant dated August 14, 2017, and CT abdomen dated April 29, 2019. TECHNIQUE: Right upper quadrant sonography performed with image documentation. FINDINGS: LIVER: Hepatic steatosis. The liver measures 16.4 cm in craniocaudal length. No discrete mass. GALLBLADDER: The gallbladder is contracted. No gallstones or wall thickening identified. COMMON BILE DUCT: Measures 5 mm, within normal limits. PANCREAS: The pancreas is obscured by bowel gas. RIGHT KIDNEY: The right kidney measures 9.7 x 4.6 x 4.5 cm. Normal renal contours. No renal mass, calculus, or hydronephrosis. IMPRESSION: No acute cholecystitis /Sarah
[2025-01-08 19:10] LABS: ASPARTATE AMINOTRANSFERASE 16.0 U/L (10-37); CREATINE KINASE, TOTAL 81.0 U/L (21-232); TOTAL PROTEIN, SERUM 7.1 g/dL (6.0-8.3)
--- NOTE | 2025-01-08 19:21 | NUR ---
PT PLACED INTO HALLWAY BED AT THIS TIME FROM THE LOBBY, NO SIGNS OF ACUTE DISTRESS NOTED
[2025-01-08] MEDS ORDERED: NITR100C4 PO (19:36)
[2025-01-08] MEDS ORDERED: FAMO-136 PO (19:36)
[2025-01-08] MEDS: NITROFURANTOIN MONOHYD/M-CRYST 100 MG CAPSULE PO SCH (19:39)
[2025-01-08 20:17] VITALS: BP 110/51; PULSE 77; RESP 15; TEMP 98.2; O2SAT 99
--- NOTE | 2025-01-09 06:33 | EKG ---
[facility] Test Date: 2025-01-08 Test Time: 17:43:28 Pat Name: MYESHA RECINOS Department: ED Room: Gender: F Ship Washer: [id number] : 1985 Requested By: DESIRAE LALNOS Order Number: [id number] Reading MD: José Miguel Valdez Measurements Intervals [place] Rate: 86 P: 27 OR: 130 QRS: 15 QRSD: 88 T: 26 QT: 346 QTc: 415 Interpretive Statements Sinus rhythm Low voltage, precordial leads Compared to ECG 10/22/2023 12:28:05 No significant changes Electronically Signed On 01-09-2025 13:22:33 CDT by José Miguel Valdez Please click the below link to view image of tracing.
== END 2025-01-08 20:29 | disposition home or self-care (01) ==
LOC: EDH 17:21
DX: K29.70 Gastritis, unspecified, without bleeding (principal); N39.0 Urinary tract infection, site not specified; G47.30 Sleep apnea, unspecified; I10 Essential (primary) hypertension; M19.90 Unspecified osteoarthritis, unspecified site; Z79.899 Other long term (current) drug therapy; Z88.0 Allergy status to penicillin
CPT/HCPCS: 99285; 96374; 76705; 96375; 82550; 80076; 84484; 80048; 83690; 85025; 87086 ×2; 87186; 81001; 81025; 36415; 93005; J2405; J2270; J2470